=== PATIENT | male | born 1930 | race Caucasian/White ===

== ENCOUNTER 2018-05-17 11:47 | Observation (INO) | payer OTHER ==
[~2018-05-17] VITALS: Ht 175.3 cm; Wt 67.1 kg
--- NOTE | ~2018-05-17 | H ---
[address] [address] HISTORY AND PHYSICAL Name: DAVONTE LÓPEZ Room: [address] Anu Quick#: [id number] Admission: 05/17/18 Attend Phys: Graham Schultz DO Discharge: 05/18/18 Date of : 34 Report #: [id number] THIS REPORT FOR: //name// Please refer to the History and Physical performed in the physician's office. By: [facility]2Medical Records Staff JANET /ALICE
[~2018-05-17 11:47] MED LIST: CAPOTEN PO; CRANBERRY500 M1 PO; DULCOLAX STOOL100 MG PO; FIBER1 GM PO; FIBER500 MG PO; IRON325 PO; KEFLEX500 MG PO; TAMSULOSIN HCL0.4 M1 PO; TAMSULOSIN HCL0.4 MG PO; [UNRECOGNIZED DRUG - REMARK]
[2018-05-17 12:35] VITALS: BP 143/76
[2018-05-17 12:35] LABS: HEMATOCRIT 42.8 % (42.0-52.0); HEMOGLOBIN 14.2 gm/dL (14.0-18.0); MCHC 33.1 g/dL (28.0-37.0); MCV 90.6 fL (80.0-100.0); MPV 8.8 fl. (7.2-11.1); RBC 4.72 mil/uL (4.50-6.00); RDW-CV 15.1 % (10.5-14.5); WBC 5.4 thou/uL (4.0-11.0)
[2018-05-17 13:03] LABS: CALCIUM 9.4 mg/dL (8.5-10.1); CREATININE 1.3 mg/dL (0.6-1.3); POTASSIUM 4.3 mmol/L (3.5-5.1)
[2018-05-17 13:08] LABS: ALBUMIN 3.7 g/dL (3.4-5.0); TOTAL BILIRUBIN 0.4 mg/dL (<0.1-1.0); TOTAL PROTEIN 7.6 g/dL (6.4-8.2)
--- NOTE | 2018-05-17 14:32 | EKG ---
[place] [address] ELECTROCARDIOGRAM REPORT Name: DAVONTE LÓPEZ Room: [facility]#: [id number] Admission: 05/17/18 Attend Phys: Graham Schultz DO Discharge: Date of : 34 Report #: [id number] THIS REPORT FOR: //name// [facility] Test Date: 2018-05-17 Test Time: 12:05:24 Pat Name: DAVONTE LÓPEZ Department: Room: Gender: M Seamstress Fitter: ANAIS : 1930 Requested By: Graham Schultz Order Number: [id number] Reading MD: Richie Brito Measurements Intervals Gray Rate: 81 P: 54 NV: 170 QRS: -65 QRSD: 110 T: 70 QT: 403 QTc: 468 Interpretive Statements Sinus rhythm Left anterior fascicular block Abnormal R-wave progression, early transition Left ventricular hypertrophy Compared to ECG 12/17/2016 17:47:29 Left ventricular hypertrophy now present Electronically Signed On 05-17-2018 14:32:41 CDT by Richie Brito [email or web address] <ELECTRONICALLY SIGNED> By: Richie Brito MD, [facility] 05/17/18 1432 1205 1205 Richie Brito MD, [facility] /EPI
--- NOTE | 2018-05-17 16:07 | OP ---
[address] [address] OPERATIVE REPORT Name: DAVONTE LÓPEZ Philipp Room: [address] Abdelrahman#: [id number] Admission: 05/17/18 Attend Phys: Graham Schultz DO Discharge: Date of : 34 Report #: [id number] THIS REPORT FOR: //name// CC: Graham Agosto MD DATE OF SERVICE: 05/17/2018 REFERRING PHYSICIAN: Surendra Lopez MD. PREOPERATIVE DIAGNOSIS: Incisional hernia. POSTOPERATIVE DIAGNOSIS: Incisional hernia. PROCEDURE: Incisional hernia repair with mesh. SURGEON: Graham Schultz DO. HOT METAL CAR OPERATOR: Dr. Vasu Vences. SECOND AUTOMATIC MOLD SANDER: Dr. Michelle Lin. ANESTHESIA: General endotracheal. ESTIMATED BLOOD LOSS: Less than 50 mL. COMPLICATIONS: None. DESCRIPTION OF PROCEDURE: After obtaining proper consents and discussing risks and complications with the patient, he was taken to the operating room, laid on the supine position and administered general anesthesia. 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 We then were able to prep and drape around this area without difficulty. Once we were prepped and draped, a small midline incision was made from the pubic bone cephalad with a #10 scalpel blade. This was carried down through the skin into the subcutaneous tissue using electrocautery for hemostasis. I then identified a hernia sac, which was quite difficult as there is a large amount of scar tissue in this area. We did enter the hernia sac cautiously to assure no injury to any bowel that was underlying and then, I was able to dissect the entire hernia sac free. There was a defect in the fascia, right at the pubic bone noted to be approximately 3 cm in diameter. We elected to use a 6.[address] mesh, which was then inserted intraperitoneally. We did sew a portion of the mesh to the pubic ramus as well as closing the fascial defect over top of this incorporating the mesh into the closure using 0 [place] [address] OPERATIVE REPORT Name: DAVONTE LÓPEZ Room: [address] Khai.#: [id number] Admission: 05/17/18 Attend Phys: Graham Schultz DO Discharge: Date of : 34 Report #: [id number] The subcutaneous tissues were then injected with 0.5% Marcaine without epinephrine and closed using 3-0 Vicryl suture. The skin was closed using 4-0 Monocryl. Mastisol, Steri-Strips, sterile OpSite and pressure dressing was placed. The patient tolerated the procedure well, was awakened in the operating room and transported to the recovery room in stable condition. <ELECTRONICALLY SIGNED> By: Graham Schultz DO 05/17/18 1607 1526 [id number] Schultz DO /santana
[2018-05-17 17:59] VITALS: BP 168/90
--- NOTE | 2018-05-17 19:43 | NUR ---
PATIENT ARRIVED TO UNIT AT 1645. ALERT AND ORIENTED X4. DENIES NEED FOR PAIN MEDICATION. DENIES NAUSEA. IV PATENT AND SALINE LOCKED. DRESSING IS C/D/I. UROSTOMY BAD IN PLACE AND DRAINING. TOLERATING DIET. PATIENT HAS BEEN ORIENTED TO ROOM. VSS ON ROOM AIR. CALL LIGHT IS WITHIN REACH. NURSING WILL CONTINUE TO MONITOR.
[2018-05-17 20:00] VITALS: BP 162/70
[2018-05-18] VITALS: BP 126/75
[2018-05-18 04:31] VITALS: BP 120/71
--- NOTE | 2018-05-18 05:16 | NUR ---
ASSESSMENT COMPLETE. PT SLEPT GOOD THROUGH THE NIGHT. PT DENIES NEED FOR PAIN MEDICATION. PT DENIES N/V, TOLERATING DIET. DRESSING TO LOW ABDOMEN DRY AND INTACT. PT IS ON ROOM AIR WITH [place] SATS. PT IS FALL RISK, BED ALARM ON. PT IS UP ONE ASSIST. SCD'S IN PLACE. UROSTOMY HOOKED TO [place] BAG AT THIS TIME. SEE ASSESSMENT AND VITALS FOR OTHER DETAILS. CALL LIGHT WITHIN REACH, WILL CONTINUE PLAN OF CARE
[2018-05-18 08:17] VITALS: BP 108/71
[2018-05-18] MEDS ORDERED: NORCO 5-325 TA1 EACH PO (09:12)
[2018-05-18 09:17] VITALS: BP 108/71
--- NOTE | 2018-05-18 09:30 | NUR ---
ASSUMED CARES OF PT AT 0700. PT IN BED, BED IN LOW LOCKED POSITION. CALL BUTTON AND PERSONAL ITEMS IN PT REACH. PT A&O X4, VSS ON RA, AFEBRILE, PERRLA, PT UP SBA. SKIN INTACT, NO EDEMA NOTED. PT DENIES PAIN, REPORTS A LITTLE DISCOMFORT IN LOWER ABD, BUT DOES NOT WANT MEDICATION AT THIS TIME. RIGHT HAND IV SALINE LOCKED, PATENT TO FLUSH. UROSTOMY PATENT. HRRR PER AUSCULTATION, LCTAB. HOURLY ROUNDING CONTINUES. PT CLEARED FOR DISCHARGE THIS MORNING. DISCHARGE EDUCATION GIVEN, PRESCRIPTION AND DRUG EDUCATION GIVEN, QUESTIONS ANSWERED. IV REMOVED, PT PERSONAL BELONGINGS PACKED AND READY TO GO. SPOUSE TO DRIVE PT HOME.
--- NOTE | 2018-05-18 10:31 | NUR ---
PT DISCHARGE COMPLETED AT 1029. PT ESCORTED WITH NURSING STAFF VIA AMBULATION TO SPOUSE IN TRUCK TO GO HOME. PERSONAL BELONGINGS TAKEN WITH PT. DISCHARGE EDUCATION ALL COMPLETED. ASSESSMENTS COMPLETED. HOURLY ROUNDING COMPLETED. PT STABLE AND TALKATIVE/SMILING AT DISCHARGE. PT STATED HE FELLS FINE.
[2018-05-18 10:33] VITALS: BP 108/71
--- NOTE | 2018-06-07 06:06 | PATH ---
[facility] [address] [place] [address] PATHOLOGY RPT PROCEDURE Name: WU LÓPEZ Room: [address] Anu Quick#: [id number] Admission: 05/17/18 Date of : 34 Discharge: 05/18/18 Report #: [id number] Path Case #: [id number] [facility] Accession Number: [id number] . 01 Material submitted: . HERNIA SAC . 01 Clinical history: . Incisional hernia without obstruction . 02 Diagnosis: Hernia sac: - Benign mesothelial-lined fibromembranous/fibrofatty tissue with mild chronic inflammation. (RAMIRO:db; 05/19/2018) LBQ/05/19/2018 . 02 Electronically signed: . Brandan Granado MD, Pathologist NPI- [id number] . 01 Gross description: . The specimen is received in formalin, labeled "Wu López, hernia sac". Received is a segment of fibromembranous tissue with a slight amount of attached fibroadipose tissue measuring 6.6 x 4.8 x 1.9 cm in greatest dimensions. The specimen is submitted representatively in cassette A1. (CAA; 05/18/2018) QAC/QAC . 02 Pathologist provided ICD-10: K43.2 . 02 CPT . 243455 Performed at: [address] [facility], [place], [place] [id number] MD Dwain Wilde MD Phone: [phone] Performed at: [address] [facility] [address] [address], [place], [place] [id number] MD Brandan Granado MD Phone: [phone]
== END 2018-05-18 10:29 | disposition home or self-care (01) ==
LOC: M.SUR 11:47 → M.TBA-ER 15:33 → M.ORTHSURG 15:33
PROVIDERS: ADMIT Surgery
DX: K43.2 Incisional hernia without obstruction or gangrene (principal); I10 Essential (primary) hypertension; Z90.49 Acquired absence of other specified parts of digestive tract; Z87.19 Personal history of other diseases of the digestive system

== ENCOUNTER → 2020-11-13 | Outpatient (CLI) | payer OTHER ==
[~2020-11-13] MED LIST changes: +NORCO 5-325 TA1 EACH PO
== END ==
LOC: M.PC 08:21
PROVIDERS: ATTEND Physical Medicine & Rehabilitation
DX: M16.11 Unilateral primary osteoarthritis, right hip (principal)

== ENCOUNTER → 2020-11-20 | Outpatient (CLI) | payer OTHER | END | disposition home or self-care (01) | LOC: M.PC 08:14 | PROVIDERS: ATTEND Physical Medicine & Rehabilitation | DX: M16.11 Unilateral primary osteoarthritis, right hip (principal); M25.551 Pain in right hip; Z98.890 Other specified postprocedural states; Z79.899 Other long term (current) drug therapy; Z90.49 Acquired absence of other specified parts of digestive tract ==

== ENCOUNTER → 2020-12-04 | Outpatient (CLI) | payer OTHER | LOC: M.PC 08:32 | PROVIDERS: ATTEND Physical Medicine & Rehabilitation | DX: M16.11 Unilateral primary osteoarthritis, right hip (principal) ==

== ENCOUNTER → 2020-12-18 | Outpatient (CLI) | payer OTHER | END | disposition home or self-care (01) | LOC: M.PC 08:59 | PROVIDERS: ATTEND Physical Medicine & Rehabilitation | DX: M25.552 Pain in left hip (principal); M16.12 Unilateral primary osteoarthritis, left hip; Z98.890 Other specified postprocedural states; Z79.899 Other long term (current) drug therapy ==

== ENCOUNTER 2021-01-13 08:31 | Emergency (ER) | payer OTHER ==
[~2021-01-13] VITALS: Ht 175.3 cm; Wt 65.8 kg
[2021-01-13 09:37] LABS: HEMATOCRIT 39.2 % (42.0-52.0); MCH 31.2 pg (26.0-34.0); MCHC 33.1 g/dL (28.0-37.0); MCV 94.4 fL (80.0-100.0); MPV 8.2 fl. (7.2-11.1); RBC 4.15 mil/uL (4.50-6.00); RDW-CV 14.6 % (10.5-14.5); WBC 5.3 thou/uL (4.0-11.0)
[2021-01-13 09:45] LABS: CALCIUM 9.4 mg/dL (8.5-10.1); CREATININE 1.2 mg/dL (0.6-1.3); POTASSIUM 4.8 mmol/L (3.5-5.1)
[2021-01-13] MEDS ORDERED: HYDROCODON-ACE1 EAC7 PO (11:36)
[2021-01-13 12:05] VITALS: BP 125/66
== END 2021-01-13 12:06 | disposition home or self-care (01) ==
LOC: M.ERS 08:31
PROVIDERS: Emergency Medicine Emergency Medical Services
DX: M25.552 Pain in left hip (principal); Z98.890 Other specified postprocedural states; Z90.49 Acquired absence of other specified parts of digestive tract

== ENCOUNTER → 2021-01-27 | Outpatient (CLI) | payer OTHER ==
[~2021-01-27] MED LIST changes: +HYDROCODON-ACE1 EAC7 PO
== END ==
LOC: M.PC 09:38
PROVIDERS: ATTEND Physical Medicine & Rehabilitation
DX: M16.0 Bilateral primary osteoarthritis of hip (principal); M51.36 Other intervertebral disc degeneration, lumbar region; M47.816 Spondylosis without myelopathy or radiculopathy, lumbar region; M48.54XA Collapsed vertebra, not elsewhere classified, thoracic region, initial encounter for fracture

== ENCOUNTER 2021-10-24 15:58 | Inpatient (IN) | payer OTHER ==
[~2021-10-24] VITALS: Ht 175.3 cm; Wt 56.7 kg
[~2021-10-24 15:58] MED LIST changes: +TRAMADOL 50 MG50 MG PO
[2021-10-24 16:36] VITALS: BP 136/79
[2021-10-24 17:30] LABS: HEMATOCRIT 40.9 % (42.0-52.0); HEMOGLOBIN 13.4 gm/dL (14.0-18.0); MCH 30.7 pg (26.0-34.0); MCHC 32.8 g/dL (28.0-37.0); MCV 93.5 fL (80.0-100.0); MPV 9.2 fl. (7.2-11.1); RBC 4.38 mil/uL (4.50-6.00); RDW-CV 13.8 % (10.5-14.5); WBC 12.2 thou/uL (4.0-11.0)
[2021-10-24 17:42] LABS: CALCIUM 8.9 mg/dL (8.5-10.1); CREATININE 1.8 mg/dL (0.6-1.3); POTASSIUM 4.5 mmol/L (3.5-5.1)
[2021-10-24 17:47] LABS: ALBUMIN 2.9 g/dL (3.4-5.0); TOTAL BILIRUBIN 0.4 mg/dL (<0.1-1.0); TOTAL PROTEIN 7.6 g/dL (6.4-8.2)
[2021-10-24 21:36] LABS: URINE BILIRUBIN NEGATIVE (Negative); URINE BLOOD TRACE (Negative); URINE CLARITY CLOUDY; URINE COLOR YELLOW; URINE GLUCOSE-RANDOM NEGATIVE (Negative); URINE KETONES NEGATIVE (Negative); URINE NITRITE-REFLEX NEGATIVE (Negative); URINE PROTEIN 2+ (Negative); URINE SPECIFIC GRAVITY 1.015 (1.005-1.030); URINE UROBILINOGEN 0.2 E.U./dl (0.2-1.0)
[2021-10-24 21:41] LABS: URINE LEUKOCYTES-REFLEX 2+ (Negative)
[2021-10-24 21:53] LABS: SQUAMOUS 4-10 Moderate /LPF (0-3)
[2021-10-24 21:54] LABS: CASTS None Seen /LPF (None Seen); URINE RBC 0-2 Rare /HPF (0-2); URINE WBC-REFLEX 6-15 Few /HPF (0-5)
[2021-10-24 21:55] LABS: AMORPHOUS PHOSPHATES Few /LPF (None Seen); CRYSTALS None Seen /LPF (None Seen)
[2021-10-24 23:30] VITALS: BP 95/68; BP 98/63
[2021-10-25] VITALS (7 sets, daily range): BP systolic 89–102; BP diastolic 56–69
[2021-10-25 11:07] LABS: HEMATOCRIT 35.7 % (42.0-52.0); HEMOGLOBIN 11.6 gm/dL (14.0-18.0); MCH 30.9 pg (26.0-34.0); MCHC 32.6 g/dL (28.0-37.0); MCV 94.9 fL (80.0-100.0); MPV 8.8 fl. (7.2-11.1); NUCLEATED RBCS 0 /100WBC; PLATELET COUNT* 124 thou/uL (150-400); RBC 3.76 mil/uL (4.50-6.00); RDW-CV 14.2 % (10.5-14.5); WBC 11.8 thou/uL (4.0-11.0)
[2021-10-25 11:21] LABS: CALCIUM 8.3 mg/dL (8.5-10.1); CREATININE 1.8 mg/dL (0.6-1.3); POTASSIUM 4.3 mmol/L (3.5-5.1)
[2021-10-25 12:16] LABS: ABSOLUTE LYMPHOCYTES 1.3 thou/uL (0.8-5.3); ABSOLUTE MONOCYTES 1.1 thou/uL (0.0-1.2); ABSOLUTE NEUTROPHILS 9.4 thou/uL (1.6-8.1); METAMYELOCYTES 2 %
[2021-10-25 12:17] LABS: PLATELET ESTIMATE DECREASED
[2021-10-26 02:13] LABS: HEMATOCRIT 35.5 % (42.0-52.0); HEMOGLOBIN 11.7 gm/dL (14.0-18.0); MCH 31.2 pg (26.0-34.0); MCHC 32.9 g/dL (28.0-37.0); MCV 95.1 fL (80.0-100.0); MPV 9.3 fl. (7.2-11.1); RBC 3.73 mil/uL (4.50-6.00); WBC 11.6 thou/uL (4.0-11.0)
[2021-10-26 03:08] VITALS: BP 121/71
[2021-10-26 03:23] LABS: CALCIUM 8.2 mg/dL (8.5-10.1); CREATININE 1.9 mg/dL (0.6-1.3); POTASSIUM 4.4 mmol/L (3.5-5.1)
[2021-10-26 09:06] VITALS: BP 137/88
[2021-10-26 13:13] VITALS: BP 138/84
[2021-10-26 13:28] VITALS: BP 138/84
[2021-10-26 16:00] VITALS: BP 133/87
[2021-10-26 17:24] LABS: CALCIUM 8.2 mg/dL (8.5-10.1); POTASSIUM 4.2 mmol/L (3.5-5.1)
[2021-10-26 20:00] VITALS: BP 157/81
[2021-10-27 08:03] LABS: ABSOLUTE LYMPHOCYTES 0.8 thou/uL (0.8-5.3); ABSOLUTE MONOCYTES 1.1 thou/uL (0.0-1.2); ABSOLUTE NEUTROPHILS 13.2 thou/uL (1.6-8.1); BASOPHILS 0.2 %; EOSINOPHILS 0.1 %; HEMATOCRIT 34.7 % (42.0-52.0); HEMOGLOBIN 11.3 gm/dL (14.0-18.0); MCH 30.9 pg (26.0-34.0); MCHC 32.6 g/dL (28.0-37.0); MCV 94.7 fL (80.0-100.0); MONOCYTES 7.2 %; MPV 8.7 fl. (7.2-11.1); NUCLEATED RBCS 0 /100WBC; PLATELET COUNT* 157 thou/uL (150-400); POLYS 87.5 %; RBC 3.66 mil/uL (4.50-6.00); RDW-CV 14.2 % (10.5-14.5); WBC 15.1 thou/uL (4.0-11.0)
[2021-10-27 08:07] LABS: CALCIUM 7.7 mg/dL (8.5-10.1); CREATININE 1.9 mg/dL (0.6-1.3); POTASSIUM 4.3 mmol/L (3.5-5.1)
[2021-10-27 08:15] VITALS: BP 160/88
[2021-10-27 12:59] VITALS: BP 136/74
[2021-10-27 16:42] VITALS: BP 131/90
[2021-10-27 20:00] VITALS: BP 154/85
[2021-10-28 00:39] VITALS: BP 137/85
[2021-10-28 05:10] LABS: HEMATOCRIT 33.4 % (42.0-52.0); HEMOGLOBIN 10.9 gm/dL (14.0-18.0); MCH 30.6 pg (26.0-34.0); MCHC 32.8 g/dL (28.0-37.0); MCV 93.4 fL (80.0-100.0); MPV 8.9 fl. (7.2-11.1); RBC 3.57 mil/uL (4.50-6.00); RDW-CV 14.1 % (10.5-14.5); WBC 14.7 thou/uL (4.0-11.0)
[2021-10-28 05:18] LABS: CALCIUM 7.6 mg/dL (8.5-10.1); CREATININE 1.5 mg/dL (0.6-1.3); POTASSIUM 3.8 mmol/L (3.5-5.1)
[2021-10-28 09:00] VITALS: BP 108/67
[2021-10-28] MEDS ORDERED: EXCEDRIN CAPLE1 EACH PO (10:43)
[2021-10-28] MEDS ORDERED: FLEXERIL PO (10:43)
[2021-10-28] MEDS ORDERED: TEGRETOL200 MG PO (10:45)
[2021-10-28 12:49] VITALS: BP 108/67
== END 2021-10-28 13:50 | disposition home or self-care (01) | DRG 73 ==
LOC: M.ERS 15:58 → M.TBA-ER 19:30 → M.2W 19:30 → M.TBA 19:30 → M.TBA-ER 19:30 → M.TBA 10-26 16:11 → M.2W 10-26 20:13
PROVIDERS: Internal Medicine; Physician Assistant; ADMIT Internal Medicine; ATTEND Internal Medicine
DX: G50.0 Trigeminal neuralgia (principal); N17.0 Acute kidney failure with tubular necrosis; R65.11 Systemic inflammatory response syndrome (SIRS) of non-infectious origin with acute organ dysfunction; Z20.822 Contact with and (suspected) exposure to COVID-19